=== PATIENT | female | born 1955 | race Caucasian/White ===

== ENCOUNTER → 2018-03-05 | Outpatient (CLI) | payer BC | LOC: M RAD 10:22 | DX: K22.70 Barrett's esophagus without dysplasia (principal); K21.9 Gastro-esophageal reflux disease without esophagitis; K59.00 Constipation, unspecified; R10.9 Unspecified abdominal pain; K76.89 Other specified diseases of liver | CPT/HCPCS: 76700 ==

== ENCOUNTER 2023-12-25 19:37 | Emergency (ER) | payer MEDICARE, BC ==
[~2023-12-25] VITALS: Ht 170.2 cm; Wt 102.9 kg
[2023-12-25 20:00] VITALS: TEMP 97.2
[2023-12-25] MEDS: methylPREDNISolone 125MG 2ML VIAL IM ONE (20:18)
[2023-12-25] MEDS: diazePAM 10MG/2ML SYRINGE IM ONE (20:18)
[2023-12-25] MEDS ORDERED: MEDR4PAK PO (22:29)
[2023-12-25] MEDS ORDERED: VALI2TAB PO (22:29)
[2023-12-25 22:58] VITALS: BP 128/61; O2SAT 96
[2023-12-25] MEDS: diazePAM 2 MG TAB PO ONE (23:06)
== END 2023-12-25 23:12 | disposition home or self-care (01) ==
LOC: EDBD 19:37 → M ED 19:37
DX: M54.50 Low back pain, unspecified (principal); M70.70 Other bursitis of hip, unspecified hip; M79.7 Fibromyalgia; Z88.8 Allergy status to other drugs, medicaments and biological substances; Z79.899 Other long term (current) drug therapy
CPT/HCPCS: 72131; 72192; 96372; 99284; J2919; J3360